=== PATIENT | female | born 1965 | race Caucasian/White ===

== ENCOUNTER 2017-04-10 15:28 | Inpatient (IN) | payer OTHER ==
[~2017-04-10] VITALS: Ht 104.1 cm; Wt 78.0 kg
[2017-04-10 15:41] VITALS: Ht 104.1 cm; Wt 78.0 kg
[2017-04-10 16:57] LABS: PLATELET COUNT 291 x10^3mcL (130-400)
[2017-04-10 17:25] LABS: RED CELL DISTRIBUTION WIDTH 15.2 % (11.5-14.5)
[2017-04-10 17:36] LABS: BAND NEUTROPHIL 0 % (0-10); BASOPHIL 0 % (0-2); MONOCYTE 5 % (0-7); PLATELET MORPHOLOGY PLATELETS NORMAL; SEGMENTED NEUTROPHILS 84 % (37-75); rbc morphology (normal/abnorm) NORMAL (NORMAL)
[2017-04-10 18:19] LABS: ALBUMIN 3.4 g/dL (3.4-5.0); ALKALINE PHOSPHATASE 197 U/L (46-116); ALT/SGPT 23 U/L (14-59); AMYLASE 54 U/L (25-115); AST/SGOT 12 U/L (15-37); BILIRUBIN TOTAL 0.2 mg/dL (0.20-1.00); CALCIUM 9.2 mg/dL (8.5-10.1); CARBON DIOXIDE 25.5 mmol/L (21-32); CHLORIDE SERUM 105 mmol/L (98-107); CREATININE SERUM 0.4 mg/dL (0.6-1.0); GFR1 > 60 mL/min; GLUCOSE SERUM 119 mg/dL (74-106); LIPASE 94 IU/L (73-393); POTASSIUM SERUM 3.5 mmol/L (3.5-5.1); SODIUM SERUM 143 mmol/L (136-145)
[2017-04-10 19:28] LABS: MAGNESIUM 1.7 mg/dL (1.8-2.4); PHOSPHOROUS 3.2 mg/dL (2.5-4.9)
[2017-04-10 19:30] LABS: CHOLESTEROL/HDL RATIO 6.1
[2017-04-10 19:34] LABS: FREE T4 0.95 ng/dL (0.76-1.46); FREE THYROXINE INDEX 2.9 ug/dL (1.4-4.5); T4(THYROXINE) 8.1 ug/dL (4.7-13.3)
[2017-04-10 19:37] VITALS: BP 126/75
[2017-04-10 20:00] LABS: T3 TOTAL 0.87 ng/mL
[2017-04-10] MEDS ORDERED: BACLOFEN20 MG PO (22:55)
[2017-04-10] MEDS ORDERED: DILAUDID2 MG PO (22:56)
[2017-04-10] MEDS ORDERED: AMBIEN10 MG PO (22:56)
[2017-04-10] MEDS ORDERED: KEPPRA1000 M1 PO (22:56)
[2017-04-10] MEDS ORDERED: DILANTIN100 MG PO (22:57)
[2017-04-10] MEDS ORDERED: GABAPENTIN800 M1 PO (23:00)
[2017-04-10] MEDS ORDERED: SEROQUEL300 MG PO (23:01)
[2017-04-10] MEDS ORDERED: TRAZODONE100 MG PO (23:02)
[2017-04-10] MEDS ORDERED: ADULT LOW DOSE81 MG PO (23:03)
[2017-04-10] MEDS ORDERED: OXYCODONE HCL20 M1 PO (23:04)
[2017-04-10] MEDS ORDERED: CLONAZEPAM0.5 MG PO (23:05)
[2017-04-10] MEDS ORDERED: ZOLOFT50 MG PO (23:06)
[2017-04-10] MEDS ORDERED: BUS5 PO (23:07)
[2017-04-10] MEDS ORDERED: RIZATRIPTAN BEN10 MG PO (23:07)
[2017-04-10] MEDS ORDERED: DICLOFENAC SODI75 MG PO (23:08)
[2017-04-11 05:01] VITALS: BP 146/85
[2017-04-11 09:42] VITALS: BP 123/67
[2017-04-11 12:28] VITALS: BP 119/80
[2017-04-11 14:51] LABS: microscopic required? NO
[2017-04-11 15:00] LABS: urine erythrocyte NEGATIVE (NEGATIVE)
[2017-04-11 18:07] VITALS: BP 108/70
[2017-04-11 20:36] VITALS: BP 104/73
[2017-04-12 04:39] VITALS: BP 106/79
[2017-04-12 09:57] VITALS: BP 118/78
[2017-04-12 09:59] LABS: BASOPHIL % 0.6 % (0-2); PLATELET COUNT 209 x10^3mcL (130-400); RED CELL DISTRIBUTION WIDTH 15.4 % (11.5-14.5)
[2017-04-12 10:03] LABS: CALCIUM 8.5 mg/dL (8.5-10.1); CARBON DIOXIDE 21.4 mmol/L (21-32); CHLORIDE SERUM 110 mmol/L (98-107); CREATININE SERUM 0.5 mg/dL (0.6-1.0); GFR1 > 60 mL/min; GLUCOSE SERUM 121 mg/dL (74-106); PHOSPHOROUS 2.5 mg/dL (2.5-4.9); POTASSIUM SERUM 3.2 mmol/L (3.5-5.1); SODIUM SERUM 140 mmol/L (136-145)
[2017-04-12 17:19] VITALS: BP 150/67
[2017-04-12 21:14] VITALS: BP 149/81
[2017-04-13 04:51] VITALS: BP 131/84
[2017-04-13 06:37] LABS: BASOPHIL % 0.5 % (0-2); PLATELET COUNT 207 x10^3mcL (130-400)
[2017-04-13 06:39] LABS: RED CELL DISTRIBUTION WIDTH 15.1 % (11.5-14.5)
[2017-04-13 07:08] LABS: CALCIUM 8.3 mg/dL (8.5-10.1); CARBON DIOXIDE 24.6 mmol/L (21-32); CHLORIDE SERUM 110 mmol/L (98-107); CREATININE SERUM 0.4 mg/dL (0.6-1.0); GFR1 > 60 mL/min; GLUCOSE SERUM 80 mg/dL (74-106); POTASSIUM SERUM 3.8 mmol/L (3.5-5.1); SODIUM SERUM 144 mmol/L (136-145)
[2017-04-13 08:52] VITALS: BP 124/65
[2017-04-13] MEDS ORDERED: LEVAQUIN750 MG PO (12:48)
[2017-04-13] MEDS ORDERED: LOPERAMIDE1 MG/5 M1 PO (12:48)
[2017-04-13] MEDS ORDERED: FLA500 PO (12:48)
[2017-04-13] MEDS ORDERED: LAC PO (12:48)
[2017-04-13 18:05] VITALS: BP 126/76
[2017-04-13 21:45] VITALS: BP 118/78
[2017-04-14 05:49] VITALS: BP 97/57
[2017-04-14 06:20] LABS: CALCIUM 8.4 mg/dL (8.5-10.1); CHLORIDE SERUM 105 mmol/L (98-107); CREATININE SERUM 0.6 mg/dL (0.6-1.0); GFR1 > 60 mL/min; GLUCOSE SERUM 87 mg/dL (74-106); MAGNESIUM 1.5 mg/dL (1.8-2.4); PHOSPHOROUS 4.6 mg/dL (2.5-4.9); POTASSIUM SERUM 3.3 mmol/L (3.5-5.1); SODIUM SERUM 142 mmol/L (136-145)
[2017-04-14 07:45] LABS: BASOPHIL % 0.2 % (0-2); PLATELET COUNT 221 x10^3mcL (130-400)
[2017-04-14 07:48] LABS: RED CELL DISTRIBUTION WIDTH 15.1 % (11.5-14.5)
[2017-04-14 09:55] VITALS: BP 86/46
[2017-04-14 13:06] VITALS: BP 94/57
[2017-04-14] MEDS ORDERED: NITROGLYCERIN0.4 MG SL (14:40)
[2017-04-14 15:27] VITALS: BP 94/57
[2017-04-14] MEDS ORDERED: MORPHINE S10 MG/5 ML PO ×2 (16:30→16:58)
== END 2017-04-14 17:10 | DRG 392 ==
LOC: ED 15:28 → MU 17:39 → DU 17:39 → MU 04-11 18:02
PROVIDERS: Emergency Medicine; Family Medicine; Family Medicine Sports Medicine
DX: A08.4 Viral intestinal infection, unspecified (principal); Z68.45 Body mass index [BMI] 70 or greater, adult; E83.42 Hypomagnesemia; M54.9 Dorsalgia, unspecified; G89.29 Other chronic pain; G47.00 Insomnia, unspecified; G40.909 Epilepsy, unspecified, not intractable, without status epilepticus; E78.5 Hyperlipidemia, unspecified; D64.9 Anemia, unspecified; F43.10 Post-traumatic stress disorder, unspecified; F17.210 Nicotine dependence, cigarettes, uncomplicated; I25.2 Old myocardial infarction; Z59.0 Homelessness; Z99.3 Dependence on wheelchair; Z89.612 Acquired absence of left leg above knee; Z89.611 Acquired absence of right leg above knee; Z85.43 Personal history of malignant neoplasm of ovary; Z86.73 Personal history of transient ischemic attack (TIA), and cerebral infarction without residual deficits; Z66 Do not resuscitate
CPT/HCPCS: 82962; 83880; 84439; 87046; 87046-59; 97110-GP; 97530-GP; 97542-GP; J0780; J1200; J1644; J1956; J2270; J2405; J3010; J3475; J7030; Q9967